=== PATIENT | female | born 1955 | race Caucasian/White ===

== ENCOUNTER 2023-04-07 11:29 | Inpatient (IN) | payer MEDICAID ==
[~2023-04-07] VITALS: Ht 152.4 cm; Wt 68.2 kg
[2023-04-07 12:04] LABS: BASOPHILS % 0.3 % (0.0-2.0); EOSINOPHILS % 2.1 % (0.0-5.0); HEMATOCRIT. 35.4 % (36.0-48.0); LYMPHOCYTES % 30.6 % (20.0-50.0); MEAN CORPUSCULAR HEMOGLOBIN 25.7 pg (28.0-32.0); MEAN CORPUSCULAR VOLUME 76.1 fL (81.0-99.0); MEAN PLATELET VOLUME 9.4 fl (7.4-10.4); MONOCYTES % 7.5 % (2.0-8.0); NEUTROPHILS % 59.5 % (40.0-76.0); PLATELET 228 x1000/uL (130-400); RED BLOOD CELL COUNT 4.65 mill/uL (4.2-5.4); RED CELL DISTRIBUTION WIDTH 14.5 % (11.6-14.6)
[2023-04-07 12:13] LABS: CHLORIDE 111 mEq/L (98-107)
[2023-04-07 12:28] LABS: CLARITY URINE CLEAR (CLEAR); COLOR URINE YELLOW (YELLOW); KETONES URINE NEGATIVE (NEGATIVE); LEUKOCYTE ESTERASE URINE TRACE (NEGATIVE); NITRITE URINE NEGATIVE (NEGATIVE); OCCULT BLOOD URINE NEGATIVE (NEGATIVE); PROTEIN URINE NEGATIVE (NEGATIVE); SPECIFIC GRAVITY URINE 1.015 (1.005-1.030); UROBILINOGEN URINE 0.2 E.U./dL (0.2-1.0)
[2023-04-07] MEDS ORDERED: AMLODIPINE 5MG TABLET PO SCH (13:30)
[2023-04-07] MEDS ORDERED: HYDRALAZINE 20MG/ML VIAL IV NR (15:00)
[2023-04-07] MEDS ORDERED: ONDANSETRON HCL 4MG/2ML INJ IV PRN (15:30)
[2023-04-07] MEDS ORDERED: GUAIFENESIN 200MG/10ML SUGAR FREE UDC PO PRN (15:30)
[2023-04-07] MEDS ORDERED: TRAMADOL 50MG TABLET PO PRN (15:30)
[2023-04-07] MEDS ORDERED: ACETAMINOPHEN 325MG TABLET PO PRN (15:30)
[2023-04-07] MEDS ORDERED: HYDRALAZINE HCL 25MG TABLET PO SCH (15:30)
[2023-04-07] MEDS ORDERED: NALOXONE HCL 0.4MG/ML VIAL IV PRN (15:30)
[2023-04-07] MEDS ORDERED: HYDROCODONE/ACETAMINOPHEN 5/325MG TABLET PO PRN (15:30)
[2023-04-07] MEDS ORDERED: CLONIDINE 0.1MG TABLET PO PRN (15:30)
[2023-04-07] MEDS ORDERED: DOCUSATE SODIUM 100MG CAPSULE PO PRN (15:30)
[2023-04-07] MEDS: ENOXAPARIN 40MG/0.4ML SYR SUBCUT SCH (16:18)
[2023-04-07 17:19] VITALS: BP 135/47; PULSE 99; RESP 18; TEMP 98.3
[2023-04-07 17:31] VITALS: BP 135/47; PULSE 99; RESP 18; TEMP 98.3
[2023-04-07] MEDS ORDERED: ASPI-1497 PO (17:43)
[2023-04-07 20:00] VITALS: BP 149/54; PULSE 110; RESP 13; TEMP 98.5
[2023-04-07] MEDS: HYDRALAZINE HCL 10MG TABLET PO SCH (21:14)
[2023-04-07 22:00] VITALS: BP 134/53; PULSE 93; RESP 15
[2023-04-07 23:00] VITALS: BP 99/57; PULSE 94; RESP 20
[2023-04-07 23:12] LABS: HEPATITIS B SURFACE ANTIGEN NEGATIVE
[2023-04-08] VITALS: BP 115/83; PULSE 90; RESP 22; TEMP 99.1
[2023-04-08 02:00] VITALS: BP 120/53; PULSE 82; RESP 18
[2023-04-08 04:00] VITALS: BP 115/53; PULSE 88; RESP 12
[2023-04-08] MEDS: HYDRALAZINE HCL 10MG TABLET PO SCH (06:14)
[2023-04-08 07:23] LABS: BASOPHILS % 0.4 % (0.0-2.0); EOSINOPHILS % 0.8 % (0.0-5.0); HEMATOCRIT. 32.3 % (36.0-48.0); HEMOGLOBIN. 10.7 g/dL (12.0-16.0); LYMPHOCYTES % 30.9 % (20.0-50.0); MEAN CORPUSCULAR HEMOGLOBIN 25.1 pg (28.0-32.0); MEAN CORPUSCULAR VOLUME 75.9 fL (81.0-99.0); MEAN PLATELET VOLUME 10.1 fl (7.4-10.4); MONOCYTES % 8.8 % (2.0-8.0); NEUTROPHILS % 59.1 % (40.0-76.0); PLATELET 218 x1000/uL (130-400); RED BLOOD CELL COUNT 4.25 mill/uL (4.2-5.4); RED CELL DISTRIBUTION WIDTH 14.4 % (11.6-14.6)
[2023-04-08 08:14] LABS: CHLORIDE 111 mEq/L (98-107)
[2023-04-08] MEDS: ENOXAPARIN 40MG/0.4ML SYR SUBCUT SCH (08:17)
[2023-04-08 08:18] VITALS: BP 127/60; PULSE 83; RESP 19; TEMP 98.1
[2023-04-08 08:22] LABS: HDL CHOLESTEROL 41 mg/dL (40-59); LDL CHOLESTEROL 47 mg/dL (5-100)
[2023-04-08] MEDS ORDERED: AMLODIPINE 10MG TABLET PO SCH (09:00)
[2023-04-08 11:44] VITALS: BP 127/60; PULSE 83; TEMP 98.1; O2SAT 100
[2023-04-08 12:00] VITALS: BP 127/60; PULSE 83; RESP 19; TEMP 98.1
== END 2023-04-08 14:00 | disposition home or self-care (01) | DRG 199 ==
LOC: ER 11:45 → EDBEDREQ 14:56 → 3WST 18:08
PROVIDERS: ADMIT Hospitalist; ATTEND Hospitalist
DX: I16.0 Hypertensive urgency (principal); E78.00 Pure hypercholesterolemia, unspecified; I10 Essential (primary) hypertension; I25.10 Atherosclerotic heart disease of native coronary artery without angina pectoris; Z79.899 Other long term (current) drug therapy; Z91.199 Patient's noncompliance with other medical treatment and regimen due to unspecified reason
CPT/HCPCS: 36415; 71045; 80053; 80061; 81003; 84484; 85025; 86803; 87340; 93970; 99285; J0360; J1650